=== PATIENT | female | born 1980 | race Caucasian/White ===

== ENCOUNTER → 2016-03-13 | Outpatient (CLI) | payer OTHER ==
--- NOTE | 2016-03-13 16:20 | US ---
March 13, 2016 Dear Providers at the Center [facility], Thank you for requesting consultation and a detailed obstetrical ultrasound for Mrs. Mary berryar y to advanced maternal age. As you know, Edyta is a 35 year old G 1, P 0 . Her due date is 08/01 by by LMP and 12 week ultrasound. Her current gestational age based on this dating is 19 weeks 6 days. Her genetic screening revealed reassuring NIPT. ULTRASOUND Number of fetuses: 1 Placental location: Anterior; no evidence of previa Placental cord insertion: Intraplacental presentation: Breech Cervix: 3.5 cm viewed transabdominally Maximum Vertical Pocket: 6.7 cm The adnexa were evaluated. No pathology was seen. Right ovary is visualized with a small simple cyst. The ovary measures 2.4 x 3.0 x 3.0 cm. The simple cyst measures 2.2 x 1.8 x 1.9 cm. Left ovary is visualized and appears normal. It measures 2.9 x 2.3 x 3.6 cm. MEASUREMENTS: Biparietal diameter: 48 mm 20 weeks, 5 days Head circumference: 179 mm 20 weeks, 3 days Abdominal circumference: 166 mm 21 weeks, 5 days Femur length: 34 mm 20 weeks, 4 days Humerus length: 33 mm 21 weeks, 3 days Transcerebellar diameter: 22 mm 20 weeks, 6 days Average ultrasound age: 20 weeks, 6 days Estimated weight: 396 gm weight percentile: 96% ANATOMY Supratentorial brain: Normal including views of the falx, cavum septum pellucidum and choroids Lateral Ventricle: Normal, measuring 4.0 mm Posterior fossa: Normal including the cerebellum and cisterna magna Spine: Normal Nuchal fold: 4.5 mm normal Face: Normal views of the lip and nose area Profile: Normal Palate: Normal appearance of the alveolar ridge Cardiac Exam: Four chamber view of the heart: Normal including intraventricular septum Left Ventricular Outflow Tract: Normal Right Ventricular Outflow Tract: Normal 3 Vessel View: Normal Tracheal View: Normal Aortic Arch: Limited Ductal Arch: Normal SVC/IVC: Suboptimal Heart Rate: 139 bpm Diaphragm: No overt abnormalities have been detected Stomach: Normal Umbilical cord insertion: Normal Right kidney: Normal Left kidney: Normal Bladder: Normal Number of cord vessels: Three Upper extremities: Normal including the number, and architecture Lower extremities: Normal including the number and architecture Gender: Male IMPRESSION: 1. Intrauterine at 19 w 6 d, LASHON of 08/01/16. This is consistent with her previously esta blished dates. 2. Today's sonogram reveals a normal appearing fetus. 3. Cervical length measures 3.5 cm, and is without evidence of insufficiency. 4. Advanced maternal age; reassuring NIPT RECOMMENDATIONS: I was pleased to review today's ultrasound with your patient. The baby is large for gestational age. This may be a growth spurt versus a true macrosomic trend. Should there be a concern for siz ing, then I recommend a reevaluation in the third trimester. The amniotic fluid volume is normal. T he detailed anatomic survey did not reveal any overt abnormalities. Edyta is aware that ul trasound is a screening tool and cannot provide definitive genetic diagnosis. Should she desire defi nitive genetic diagnosis, she would need to have a genetic amniocentesis performed. After our discus audrey regarding the procedure, benefits, risks, alternatives, and limitations to the information clarence Lan DECLINES amniocentesis. Future ultrasound and consultation is left to your clinical discretion. Thank you for allowing me the opportunity to consult and evaluate your patient. Should you have any questions or concerns please do not hesitate to contact me. This visit was approximately 15 minutes in length with 10 minutes spent in direct face to face consultation reviewing aneuploidy screening ve rsus definitive genetic diagnosis. Sincerely, Leonela Fuller MD [employer] [facility] Department of Obstetrics & Gynecology [facility]
--- NOTE | 2016-03-13 18:59 | US ---
Obstetrical Sonogram Detail Clinical Indications: Advanced maternal age. Check growth and anatomy; comparison prior study Dece er [id number]. Technique: Longitudinal and transverse images are obtained. Dr. Fuller was present for the examination . Color Doppler evaluation is employed for assessment of vascularity. Findings: A single fetus is present in intermittent breech presentation. Maternal cervical length is estimated at 3.5 cm. The amount of amniotic fluid is normal with an MVP of 6.9 cm. The placenta is located an terior with no placenta previa. A three-vessel cord is documented with a central insertion on the pl acenta. motion is identified. cardiac activity is documented with a heart rate estimated at 139 b eats per minute. A four-chamber heart view and outflow tract views were obtained. stomach, kidn eys and bladder are normal. supratentorial brain, posterior fossa and neural axis appears dominick l. No abnormality is identified. Maternal ovaries are visualized bilaterally and appear normal. An incidental 2 cm diameter simple rig ht ovarian cyst is seen. biometry: Biparietal diameter = 48 mm = 20 weeks 5 days Head circumference = 179 mm = 20 weeks 3 days Abdominal circumference = 166 mm = 21 weeks 5 days Femur length = 34 mm = 20 weeks 4 days Estimated weight 396 +/- 58 grams. This is at the 96th percentile based on last menstrual perio d. The estimated delivery date by ultrasound is July 25, 2016. This compares to the clinical date of Jul. Impression: Single live intrauterine gestation with estimated age by ultrasound of 20 weeks 6 days with an estima brandee delivery date of July 25, 2016. There has been appropriate interval growth. No abnormality is seen. Please see Dr. Fuller's report for findings and recommendations.
== END ==
LOC: FIMAGING 14:20
PROVIDERS: ATTEND Advanced Practice Midwife
DX: O09.512 Supervision of elderly primigravida, second trimester (principal); Z3A.19 19 weeks gestation of pregnancy

== ENCOUNTER 2016-08-04 06:50 | Inpatient (IN) | payer OTHER ==
[2016-08-04] MEDS ORDERED: TERBUTALINE SULFATE 1 MG/ML VIAL IV PRN (07:27)
[2016-08-04] MEDS ORDERED: OXYTOCIN/RINGERS LACTATE 1,000 ML IV PRN (07:27)
[2016-08-04] MEDS ORDERED: EPSOM SALT 454 GM TP PRN (07:27)
[2016-08-04] MEDS ORDERED: LR 1,000 ML IV PRN (07:27)
[2016-08-04] MEDS ORDERED: OLIVE OIL 118 ML BTL MISC PRN (07:27)
[2016-08-04 07:45] LABS: ADD DIFF? YES; ADD MORPH? NO; ATYPICAL LYMPHOCYTE FLAG 0 (0-99); FRAGMENT RBC FLAG 0 (0-99); HEMATOCRIT 35.5 % (38.0-47.0); HEMOGLOBIN 12.6 g/dL (12.6-16.3); LEFT SHIFT FLG 10 (0-99); LIPEMIA HEMOLYSIS FLAG 90 (0-99); MEAN CELL HEMOGLOBIN 31.6 pg (27.9-34.1); MEAN CELL HEMOGLOBIN CONCENTR. 35.5 g/dL (32.4-36.7); MEAN PLATELET VOLUME 10.2 fL (8.7-11.7); PLATELET CLUMPS FLAG 0 (0-99); PLATELET COUNT 184 10^3/uL (150-400); RED BLOOD CELL COUNT 3.99 10^6/uL (4.18-5.33); RED CELL DISTRIBUTION WIDTH 12.3 % (11.5-15.2)
[2016-08-04 07:47] LABS: ADD SCAN? NO
[2016-08-04] MEDS ORDERED: LR 500 ML IV PRN (07:48)
[2016-08-04] MEDS ORDERED: OXYTOCIN/RINGERS LACTATE 500 ML IV SCH (08:00)
[2016-08-04] MEDS ORDERED: BUPIVACAINE 0.25% 30 ML SDV ONE (08:14)
--- NOTE | 2016-08-04 08:22 | GHP ---
[f rep st] HISTORY AND PHYSICAL DATE OF ADMISSION: 08/04/2016 CHIEF COMPLAINT: Concern for arrest of descent. HISTORY OF PRESENT ILLNESS: Patient is a healthy, 35-year-old, 1, para 0, at 40 weeks 3 days gestation, who is a transfer of care from the [facility]. She has had an uncomplicated . Per report, she arrived to the Center at 10 p.m. last night, at 8 cm. She had a spontaneous rupture of membranes shortly thereafter, with thin meconium noted. She had a reassuring tracing. She progressed slowly to complete at about 0300. From that time, she pushed intermittently on and off until 6:30 p.m. with minimal descent. She was also noted to have her contractions spacing out every 5-7 minutes. As she was no longer esha in a regular pattern, and had had no significant descent for over 3 hours. She was transferred to the hospital for further management. At this time, she has no complaints other than what is reported in history of present illness. PAST MEDICAL HISTORY: Nonsignificant. PAST SURGICAL HISTORY: Nonsignificant. MEDICATIONS: vitamins. ALLERGIES: Penicillin. FAMILY HISTORY: Noncontributory. SOCIAL HISTORY: No tobacco, alcohol, or drug use. OBJECTIVE: VITAL SIGNS: 135/68, heart rate 91, respirations 18, oxygen saturation 99%. Temperature 37.0. GENERAL: Alert, awake and oriented, in moderate distress during contractions, resting comfortably in between. CARDIOVASCULAR: Regular rate and rhythm. LUNG: Respirations nonlabored, speaking in full sentences. ABDOMEN: Gravid, soft, nontender. EFW 8 pounds. EXTREMITIES: 1+ edema. PELVIC: Sterile vaginal exam, 10 cm dilated, 0 station, unable to determine position due to patient's discomfort with check. heart rate tracing, baseline 130, moderate variability, positive spontaneous accelerations. No decelerations noted in the time that she has been here so far , with some interruptions in the tracing due to maternal movement. LABORATORIES: records reviewed. Labs within normal limits. Including Rh positive and group B strep negative. ASSESSMENT AND PLAN: The patient is a 1, para 0, at 40 weeks 3 days with concern for rest of descent. status is reassuring at this time. She does not have evidence of chorioamnionitis. She is requesting epidural for pain relief at that time. After epidural is placed, we will further reassess to determine the cause of her arrest, whether it is lack of contractions, position, or cephalopelvic disproportion. The patient is aware if further descent is not obtained upon pushing after epidural and with adequate contractions she may require a delivery. Also after epidural is placed , if she continues to have irregular contractions, she is agreeable to Pitocin for augmentation of labor. We will plan continuous monitoring. /[id number]/MODL MTDD
[2016-08-04] MEDS ORDERED: PHENYLEPHRINE HCL 100 MCG/ML SYR ONE (08:51)
[2016-08-04] MEDS ORDERED: PROPOFOL/EMULSION 500 MG/50 ML BOTTLE IV ONE (08:58)
[2016-08-04 09:05] LABS: PLATELET ESTIMATE ADEQUATE (ADEQ)
--- NOTE | 2016-08-04 09:22 | OBPROG ---
OBG Labor Progress Note Assessment/Plan: Assessment: 40w3d s/p epidural MYA from center for concern for arrest of descent Prolonged decel x 11 min after epidural--decel started at 0845 down to 60s, I was paged from OR at 0849, arrived to bedside at 0853 (9 min into decel), FHR was in 80s-90s at that time, position changes and O2 had been employed, phenylephrine s/p epidural, fluid bolus. FSE placed as FHR similar to maternal, HR found to be in 110s at that time, increasing to 115-120 shortly thereafter with moderate variability, + accels, no further decels Plan: Cont FHR tracing--advised if further prolonged decel likely will recommend C/S as she has not been pushing and station is still high Rest x 30 min, then start pushing at that time assuming fetus is tolerating labor/pushing If not making adequate descent with pushing due to lack of contractions will start pitocin prn 08/04/16 09:16 Subjective: s/p epidural Objective: 08/04/16 07:15 Patient ABO/Rh A POSITIVE 08/04/16 07:15 - SVE Dilation (cm): 10 Effacement (%): 100 Station: +1 Ash Current Contraction Pattern: Irregular FHR (bpm): 120 FHR Pattern Variability: Moderate FHR Category: 2 Membranes: SROM Amniotic Fluid Color: Meconium Stained - Procedures Non-surgical Procedures: FSE Oxytocin Orders Assessment - Pre-Induction/Augmentation Assessment Gestational Age: 40 week(s) and 3 day(s) ICD10 Worksheet Patient Problems: Problems Problem Status Onset Normal labor Acute Prolonged labor Acute - ICD10 Problem Qualifiers (1) Normal labor (2) Prolonged labor Qualifiers: Prolonged labor type: P
[2016-08-04] MEDS ORDERED: LR 500 ML IV SCH (09:30)
[2016-08-04] MEDS ORDERED: OLIVE OIL 118 ML BTL ONE (09:45)
[2016-08-04] MEDS ORDERED: LIDOCAINE 1% 300 MG/30 ML SDV ONE (09:45)
[2016-08-04] MEDS ORDERED: TERBUTALINE SULFATE 1 MG/ML VIAL ONE (09:46)
[2016-08-04] MEDS ORDERED: AMMONIA AROMATIC 1 EACH AMP IH ONE (09:46)
[2016-08-04] MEDS ORDERED: MISOPROSTOL 200 MCG TAB ONE (09:46)
--- NOTE | 2016-08-04 09:52 | PREANESOB ---
Obstetric Pre-Anesthesia Info - General Info Proposed Procedure: Labor Epidural : 1 Para: 0 - Info Status: Full Term Monitors: External FHR Baseline (bpm): 130 FHR Pattern: Reassuring - Labor Status Cervical Dilation per last OB SVE: 10 Station per last OB SVE: +1 Amniotic Fluid Color: Meconium Stained-Light Pitocin: Planned Indications for Labor Analgesia: Augmentation of Labor, Pain Control Labor Epidural: Yes (failed pushing at center. stressed fetus with multiple minute hr deceleration about 10 minutes past uneventful and technically smooth JIMBO placement. hr recovered and is stable plan now for pitocin augmentation.) Anesthesia Allergies/Adverse Reactions: Allergy/AdvReac Type Severity Reaction Status Date / Time Penicillins Allergy Verified 08/04/16 07:24 Home Medications: Medication Instructions Recorded 1 tab PO DAILY 08/04/16 Visit Medications: Generic Name Dose Route Start Last Admin Trade Name Freq PRN Reason Stop Dose Admin Lactated Ringer's 1,000 mls @ 0 mls/hr 08/04/16 07:27 Lr IV 01/31/17 07:26 PRN PRN SEE PROTOCOL CONDITIONS Protocol Per Protocol Oxytocin/Lactated Ringer's 1,000 mls @ 150 mls/hr 08/04/16 07:27 Pitocin 20 Units/Lr (Premix) IV PRN PRN Post- bleeding Lactated Ringer's 500 mls @ 500 mls/hr 08/04/16 07:48 Lr IV PRN PRN Maternal Hypotension Oxytocin/Lactated Ringer's 500 mls @ 0 mls/hr 08/04/16 08:00 Pitocin 30 Units/Lr (Premix) IV 01/31/17 07:59 CONT EMMA Protocol Per Protocol Lactated Ringer's 500 mls @ 0 mls/hr 08/04/16 09:30 Lr IV 01/31/17 09:29 CONT EMMA As Directed Ibuprofen 600 mg 08/04/16 07:27 Motrin PO 01/31/17 07:26 Q6HRS PRN post , inflammation Magnesium Sulfate 454 gm 08/04/16 07:27 Epsom Salt TP 01/31/17 07:26 Q1H PRN perineal discomfort Romulus Oil 118 ml 08/04/16 07:27 Sweet Oil MISC 01/31/17 07:26 ONCE PRN preneal massage Terbutaline Sulfate 0.25 mg 08/04/16 07:27 Brethine IV 01/31/17 07:26 ONCE PRN Tachysystole Discontinued Medications Generic Name Dose Route Start Last Admin Trade Name Anahi PRN Reason Stop Dose Admin Ammonia (Aromatic Spirit) Confirm 08/04/16 09:46 Ammonia Aromatic Administered 08/04/16 09:47 Dose 1 each IH .STK-MED ONE Bupivacaine HCl Confirm 08/04/16 08:14 Sensorcaine 0.25% Sdv Administered 08/04/16 08:15 Dose 30 ml .ROUTE .STK-MED ONE Lidocaine HCl Confirm 08/04/16 09:45 Lidocaine Hcl 1% Administered 08/04/16 09:46 Dose 300 mg .ROUTE .STK-MED ONE Misoprostol Confirm 08/04/16 09:46 Cytotec Administered 08/04/16 09:47 Dose 800 mcg .ROUTE .STK-MED ONE Romulus Oil Confirm 08/04/16 09:45 Sweet Oil Administered 08/04/16 09:46 Dose 118 ml .ROUTE .STK-MED ONE Phenylephrine HCl Confirm 08/04/16 08:51 Neosynephrine Administered 08/04/16 08:52 Dose 2,000 mcg .ROUTE .STK-MED ONE Propofol Confirm 08/04/16 08:58 Diprivan 10 Mg/Ml (Premix) Administered 08/04/16 08:59 Dose 500 mg IV .STK-MED ONE Sufentanil Citrate Confirm 08/04/16 08:14 Sufenta Administered 08/04/16 08:15 Dose 50 mcg .ROUTE .STK-MED ONE Terbutaline Sulfate Confirm 08/04/16 09:46 Brethine Administered 08/04/16 09:47 Dose 1 mg .ROUTE .STK-MED ONE - Focused Exam Height/Weight (Nursing): Height 157.48 cm Weight 80.739 kg Labs: 08/04/16 07:15 Patient ABO/Rh A POSITIVE 08/04/16 07:15
[2016-08-04] MEDS ORDERED: ACETAMINOPHEN 500 MG TAB PO ONE (11:36)
[2016-08-04] MEDS ORDERED: ACETAMINOPHEN 500 MG TAB ONE (11:41)
[2016-08-04 12:25] LABS: CORD BLOOD PCO2 38.9 mmHg (37-60)
[2016-08-04 12:26] LABS: BASE EXCESS CORD -6.8 mEq/L (-13.6--3.2)
[2016-08-04] MEDS ORDERED: CLINDAMYCIN 900 MG/DEXTROSE 50 ML IV ONE (12:26)
--- NOTE | 2016-08-04 12:53 | OBDEL ---
Info Type: Vaginal GBS+: No Indications for Delivery: Spontaneous Labor Vaginal Delivery - Labor and Delivery Onset of Contractions Date: 08/03/16 Onset of Contractions Time: 18:00 Onset of Contractions Type: Spontaneous Rupture of Membranes Date: 08/03/16 Rupture of Membranes Type: Spontaneous Amniotic Fluid Color: Thick Meconium Dilation Complete Date: 08/04/16 Dilation Complete Time: 03:00 Placenta Delivery Date: 08/04/16 Placenta Delivery Time: 12:10 Total Hours of Labor: 18 Non-surgical Procedures: FSE, Episiotomy Episiotomy: Midline Laceration: Other (Specify) (partial 3rd degree) Repair: 2-0, 3-0, Vicryl Vaginal Sponge Count Correct: Yes (correct) Cord Gases: Cord Gases Cord Blood PCO2 38.9 mmHg (37-60) 08/04/16 12:04 Cord Base Excess -6.8 mEq/L (-13.6--3.2) 08/04/16 12:04 Cord ABG pH REJ 08/04/16 12:04 Cord VBG pH 7.30 (7.20-7.42) 08/04/16 12:04 Operative Report - Delivery Cord Gases: Cord Gases Cord Blood PCO2 38.9 mmHg (37-60) 08/04/16 12:04 Cord Base Excess -6.8 mEq/L (-13.6--3.2) 08/04/16 12:04 Cord ABG pH REJ 08/04/16 12:04 Cord VBG pH 7.30 (7.20-7.42) 08/04/16 12:04 Assissted Delivery Station: +3 Pop offs (Total): 0 Pulls (Total): 4 Assisted Delivery Comment: Patient pushing with good descent starting at 10:10 AM. status remained overall reassuring with moderate variability, spontaneous accels, intermittent early decels, and intermittent late decels. Starting at 11:20 she began having recurrent late decels which were becoming deeper and erick longer. I reviewed the options of assisted vaginal delivery (vacuum) vs C/S for NRFHT as delivery was not imminent. After a thorough discussion of risks and benefits, the parents desired to proceed with VAVD. We reviewed the maternal and risks and also discussed pop offs, risk of failure and need for emergency C/S. providers and anesthesia providers were notified and available. Baby was at 3+ station, on AUGUSTA presentation. Guadarrama catheter removed just prior to vacuum placement. The vacuum was placed on the vertex and one pull was completed with minimal movement. After the contraction the pressure was let down and the vacuum position was repositioned. There was again minimal descent with this pull. I recommended one further pull and if not successful to proceed with C/S. There was excellent descent on the 3rd pull with no pop off and the baby was brought to 4+ station. I recommended an episiotomy at this time to facilitate delivery, and a 1.5 cm midline episiotomy was performed. The baby was delivered on the 4th pull. After delivery of the head the vacuum was removed , the anterior shoulder was delivered without difficultly, and the baby was placed on maternal abdomen for resuscitation. Total vacuum time 9 minutes. APGARS 8/8. Delayed cord clamping. IV pitocin started. Placenta delivered easily. 2nd degree laceration with partial tear of rectal sphincter muscle on exam. Rectal muscle repaired with 2 interrupted sutures of 2-0 vicryl. Remainder of 2nd degree laceration repaired in usual fashion with 3-0 vicryl. EBL 350 ml. Final rectal exam performed. Mom and baby in good condition. Data Ash Delivery Date: 08/04/16 Delivery Time: 12:04 LASHON: 08/01/16 Gestational Age: 40 week(s) and 3 day(s) Sex of Infant: Male Score (1 Min): 8 Score (5 Min): 8 ICD10 Worksheet Patient Problems: Problems Problem Status Onset Normal labor Acute Prolonged labor Acute Vacuum extraction, delivered, current hospitalization Acute - ICD10 Problem Qualifiers (1) Vacuum extraction, delivered, current hospitalization
[2016-08-04] MEDS ORDERED: HYDROCORTISONE 0.5% CREAM TP PRN (13:05)
[2016-08-04] MEDS ORDERED: SIMETHICONE 80 MG TAB CHEW PO PRN (13:05)
[2016-08-04] MEDS ORDERED: HYDROCODONE/APAP 5/325 TAB PO PRN (13:05)
[2016-08-04] MEDS ORDERED: ACETAMINOPHEN 325 MG TAB PO PRN (13:05)
[2016-08-04] MEDS ORDERED: OXYTOCIN/RINGERS LACTATE 1,000 ML IV SCH (13:30)
[2016-08-04] MEDS ORDERED: D5W IV ONE (13:30)
[2016-08-04] MEDS ORDERED: GENTAMICIN SULFATE IV ONE (13:30)
[2016-08-04] MEDS: IBUPROFEN 600 MG TAB PO PRN ×2 (13:55→19:56)
[2016-08-04 18:09] VITALS: RESP 16
[2016-08-04] MEDS: DOCUSATE SODIUM 100 MG CAP PO PRN (19:56)
[2016-08-05] MEDS: IBUPROFEN 600 MG TAB PO PRN ×4 (04:15→22:43)
--- NOTE | 2016-08-05 09:45 | OBPP ---
Progress Note Assessment/Plan: Assessment: PPD#1 s/p VAVD for NRFHT Overall doing well, unexpected drop in H/H after delivery. She denies symptomatic anemia Rh pos, Rub imm Plan: Routine pp care Repeat CBC Expect home PPD#2 Subjective: Feeling well. Baby is latching. Ambulating and voiding normally. Sore, but pain controlled with ibuprofen. Objective: 08/05/16 04:00 Patient ABO/Rh A POSITIVE 08/04/16 07:15 Temp Pulse Resp BP Pulse Ox 37.0 C 87 16 101/56 L 96 08/05/16 08:30 08/05/16 08:30 08/05/16 08:30 08/05/16 08:30 08/05/16 08:30 Gen: NAD, alert, awake Resp:unlabored CV: RRR Abd: soft, nontender uterus firm below U Ext: no edema Perineum: mild swelling, lochia appropriate
[2016-08-05] MEDS: DOCUSATE SODIUM 100 MG CAP PO PRN ×2 (10:32→22:43)
[2016-08-05 13:25] LABS: HEMATOCRIT 24.2 % (38.0-47.0); HEMOGLOBIN 8.5 g/dL (12.6-16.3); MEAN CELL HEMOGLOBIN CONCENTR. 35.1 g/dL (32.4-36.7); RED BLOOD CELL COUNT 2.66 10^6/uL (4.18-5.33)
[2016-08-06] MEDS: IBUPROFEN 600 MG TAB PO PRN ×2 (05:03→10:53)
[2016-08-06 08:39] VITALS: BP 93/56; PULSE 76; TEMP 97.7; O2SAT 97
--- NOTE | 2016-08-06 09:45 | OBGCSDC ---
General Delivery Information - General Info : 1 Para: 1 Delivery Physician/CNM: Sabrina Gurrola Admission Date: 08/04/16 Labs: Patient ABO/Rh A POSITIVE 08/04/16 07:15 Hct 24.2 % (38.0-47.0) L 08/05/16 12:35 Vaginal - Diagnosis Labor: Spontaneous Rupture of Membranes Type: Spontaneous Amniotic Fluid Color: Thick Meconium Episiotomy: Midline Laceration: Other (Specify) (partial 3rd degree) Repair: 2-0, 3-0, Vicryl Delivery Events: None - Operations/Procedures Assisted Delivery Type: Vacuum Non-surgical Procedures: FSE, Episiotomy L&D Analgesia/Anesthesia Type: Epidural - Hospital Course Antepartum: Low risk first , followed at Center. Transferred in labor for arrest of descent. Epidural placed after transfer. rh pos, Rub imm Intrapartum: VAVD for arrest of descent/non reassuring heart tones. 2nd degree laceration with small partial tear into rectal sphincter muscle, reinforced. : Routine pp care. Hct dropped lower than expected, remained stable at 24.2. Pt w/ o symptoms of anemia. Will take iron at home. - Delivery Non-surgical Procedures: FSE, Episiotomy L&D Analgesia/Anesthesia Type: Epidural Marion Data Ash Delivery Date: 08/04/16 Delivery Time: 12:04 LASHON: 08/01/16 Gestational Age: 40 week(s) and 5 day(s) Sex of : Male Marion Weight (gm): 3874 g Score (1 Min): 8 Score (5 Min): 8 Discharge Information - Discharge Information Discharge Medications: Iron, Ibuprofen Condition: Good Instruction/Follow Up: Six Weeks
[2016-08-06] MEDS: DOCUSATE SODIUM 100 MG CAP PO PRN (10:53)
== END 2016-08-06 15:51 | disposition home or self-care (01) | DRG 774 ==
LOC: FLD 06:50 → FOB 15:45
PROVIDERS: ADMIT Obstetrics & Gynecology; ATTEND Obstetrics & Gynecology
PROC: 10D07Z6 Extraction of Products of Conception, Vacuum, Via Natural or Artificial Opening (ICD-10-PCS; principal; 2016-08-04)
PROC: 0W8NXZZ Division of Female Perineum, External Approach (ICD-10-PCS; principal; 2016-08-04)
PROC: 0KQM0ZZ Repair Perineum Muscle, Open Approach (ICD-10-PCS; principal; 2016-08-04)
DX: O62.1 Secondary uterine inertia (principal); O86.12 Endometritis following delivery; Z37.0 Single live birth; O70.1 Second degree perineal laceration during delivery; Z3A.40 40 weeks gestation of pregnancy; O76 Abnormality in fetal heart rate and rhythm complicating labor and delivery
CPT/HCPCS: 97161-GP; J2370; J2590; J2704; J3105